=== PATIENT | male | born 1945 | race Caucasian/White ===

== ENCOUNTER 2016-10-16 01:31 | Emergency (ER) | payer MEDICARE, OTHER ==
[~2016-10-16] VITALS: Ht 182.9 cm; Wt 68.0 kg
[2016-10-16] MEDS ORDERED: PREDNISONE20 MG PO (01:48)
[2016-10-16] MEDS ORDERED: VENTOLIN HFA18 GM INH (01:48)
[2016-10-16] MEDS ORDERED: IPRAT-ALBUT 0.5-3 ML INH (02:16)
[2017-02-04] MEDS ORDERED: TESSALON PERLE100 MG PO (22:56)
== END 2016-10-16 02:24 | disposition home or self-care (01) ==
LOC: ED 01:31
DX: J44.1 Chronic obstructive pulmonary disease with (acute) exacerbation (principal); F17.200 Nicotine dependence, unspecified, uncomplicated
CPT/HCPCS: 71020; 94640; 99283; J7512

== ENCOUNTER 2016-12-03 21:57 | Emergency (ER) | payer MEDICARE, OTHER ==
[~2016-12-03] VITALS: Ht 182.9 cm; Wt 68.0 kg
[~2016-12-03 21:57] MED LIST: IPRAT-ALBUT 0.5-3 ML INH; PREDNISONE20 MG PO; VENTOLIN HFA18 GM INH
[2017-02-04] MEDS ORDERED: TESSALON PERLE100 MG PO (22:56)
== END 2016-12-03 22:32 | disposition home or self-care (01) ==
LOC: ED 21:57
DX: J44.9 Chronic obstructive pulmonary disease, unspecified (principal); F17.200 Nicotine dependence, unspecified, uncomplicated; Z79.899 Other long term (current) drug therapy
CPT/HCPCS: 94640; 99283

== ENCOUNTER → 2017-02-04 | Emergency (ER) | payer MEDICARE, OTHER ==
[~2017-02-04] VITALS: Ht 182.9 cm; Wt 68.0 kg
[~2017-02-04] MED LIST changes: +TESSALON PERLE100 MG PO
== END ==
LOC: ED 22:03
DX: J44.1 Chronic obstructive pulmonary disease with (acute) exacerbation (principal); F17.200 Nicotine dependence, unspecified, uncomplicated
CPT/HCPCS: 71010; 99284

== ENCOUNTER 2017-05-07 21:35 | Emergency (ER) | payer MEDICARE, OTHER ==
[~2017-05-07] VITALS: Ht 182.9 cm; Wt 68.0 kg
--- NOTE | 2017-05-08 05:01 | EKG ---
[facility] [address] [place], [place] [address] Signed Sinus bradycardia with sinus arrhythmia Possible Anterior infarct , age undetermined Abnormal ECG No previous ECGs available Confirmed by MICHELE LINARES MD ([id number]) on 05/08/2017 5:00:57 AM Electronically Signed By: MICHELE LINARES MD 05/08/17 0501 PATIENT NAME: RAFIQ HAYDEN Electrocardiogram DATE OF : 49 PHYSICIAN: MICHELE LINARES MD REPORT #: [id number] REPORT IS CONFIDENTIAL AND NOT TO BE RELEASED WITHOUT AUTHORIZATION
== END 2017-05-07 23:23 | disposition home or self-care (01) ==
LOC: ED 21:35
DX: R51 Headache (principal); R42 Dizziness and giddiness; F17.200 Nicotine dependence, unspecified, uncomplicated
CPT/HCPCS: 70450; 71045; 80053; 81001; 84484; 85025; 85610; 85730; 93005; 93010; 99284

== ENCOUNTER 2017-11-14 16:55 | Emergency (ER) | payer MEDICARE ==
[~2017-11-14] VITALS: Ht 182.9 cm; Wt 68.0 kg
[~2017-11-14 16:55] MED LIST changes: +DOXYCYCLINE HY100 MG PO; +LEVAQUIN750 MG PO; +LEVOTHYROXINE50 MCG PO; +ONDANSETRON ODT8 MG PO
== END 2017-11-14 19:16 | disposition home or self-care (01) ==
LOC: ED 16:55
DX: T67.5XXA Heat exhaustion, unspecified, initial encounter (principal); N39.0 Urinary tract infection, site not specified; E86.0 Dehydration; X30.XXXA Exposure to excessive natural heat, initial encounter; J44.9 Chronic obstructive pulmonary disease, unspecified; E03.9 Hypothyroidism, unspecified; F17.200 Nicotine dependence, unspecified, uncomplicated; Z79.899 Other long term (current) drug therapy; Z79.2 Long term (current) use of antibiotics
CPT/HCPCS: 94640; 99284

== ENCOUNTER 2018-06-20 16:50 | Emergency (ER) | payer MEDICARE, BC ==
[~2018-06-20] VITALS: Ht 182.9 cm; Wt 68.0 kg
--- OUTSIDE RECORDS SUMMARY | 2018-06-20 16:52 | XMS ---
PreManage Notification: RAFIQ HAYDEN [employer] Contractor Events No recent Security Events currently on file CRITERIA MET - Group Notification - [facility] - Has Care Guidelines - [facility] CARE PROVIDERS Hero Salas MD Family Medicine Current PHONE: Unknown Pina Noel Case or Fabrication Lead Current PHONE: [phone] Hero Salas MD Primary Care Current PHONE: Unknown [facility]wa has no Care Guidelines for this patient. Care History Medical/Surgical 12/05/2017 [facility] HISTORY:\T\nbsp; COPD/ HYPOTHYROID/ CURRENT SMOKER E.D. VISIT COUNT (12 MO.) 3 [facility] TOTAL 3 NOTE: Visits indicate total known visits. 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 - Heat exhaustion, unspecified, initial encounter - Weakness - Urinary tract infection, site not specified - Chronic obstructive pulmonary disease, unspecified - travel guide (current) use of antibiotics - Nicotine dependence, unspecified, uncomplicated 11/13/2017 11:14 [facility] TYPE: Emergency COMPLAINT: - WEAKNESS DIAGNOSES: - Acute bronchitis, unspecified - Nicotine dependence, unspecified, uncomplicated - Chronic obstructive pulmonary disease with acute lower respiratory infection - Urinary tract infection, site not specified - Weakness - Hypothyroidism, unspecified - Other [place] [facility] (current) drug therapy INPATIENT VISIT TRACKING (12 MO.) No inpatient visits to display in this time frame [email or web address]
[2018-06-20] MEDS ORDERED: LEVAQUIN500 MG PO (19:34)
[2018-06-20] MEDS ORDERED: PREDNISONE20 MG PO (19:40)
--- NOTE | 2018-06-20 21:16 | EKG ---
[facility] [address] [facility] [facility] [place] [address] Signed Normal sinus rhythm with sinus arrhythmia Low voltage QRS T wave abnormality, consider inferolateral ischemia Abnormal ECG When compared with ECG of 07-MAY-2017 21:50, Vent. rate has increased BY 32 BPM T wave inversion now evident in Inferior leads T wave inversion now evident in Anterolateral leads Confirmed by MICHELE LINARES MD ([id number]) on 06/20/2018 9:16:25 PM Electronically Signed By: MICHELE LINARES MD 06/20/18 2116 PATIENT NAME: RAFIQ HAYDEN Electrocardiogram DATE OF : 49 PHYSICIAN: MICHELE LINARES MD REPORT #: [id number] REPORT IS CONFIDENTIAL AND NOT TO BE RELEASED WITHOUT AUTHORIZATION
== END 2018-06-20 20:58 | disposition home or self-care (01) ==
LOC: ED 16:50
DX: J44.0 Chronic obstructive pulmonary disease with (acute) lower respiratory infection (principal); J18.9 Pneumonia, unspecified organism; E03.9 Hypothyroidism, unspecified; F17.200 Nicotine dependence, unspecified, uncomplicated
CPT/HCPCS: 71046; 80053; 83735; 84484; 85025; 87502; 93005; 93010; 96365; 96367; 96375; 99285-25; J0456; J0696; J2405; J2930

== ENCOUNTER 2019-01-31 15:24 | Emergency (ER) | payer MEDICARE, BC ==
[~2019-01-31] VITALS: Ht 182.9 cm; Wt 68.0 kg
[~2019-01-31 15:24] MED LIST changes: +LEVAQUIN500 MG PO
== END 2019-01-31 15:43 | disposition home or self-care (01) ==
LOC: ED 15:24
DX: M25.511 Pain in right shoulder (principal)

== ENCOUNTER 2019-06-19 00:50 | Emergency (ER) | payer BC, MEDICARE ==
[~2019-06-19] VITALS: Ht 182.9 cm; Wt 68.0 kg
[2019-06-19] MEDS ORDERED: LEVOTHYROXINE75 MCG PO (00:58)
[2019-06-19] MEDS ORDERED: IBUPROFEN IB200 MG PO (00:59)
== END 2019-06-19 02:02 | disposition home or self-care (01) ==
LOC: ED 00:50
DX: H10.9 Unspecified conjunctivitis (principal); J44.9 Chronic obstructive pulmonary disease, unspecified; E03.9 Hypothyroidism, unspecified; F17.200 Nicotine dependence, unspecified, uncomplicated; Z79.899 Other long term (current) drug therapy
CPT/HCPCS: 99283

== ENCOUNTER 2020-06-22 15:43 | Emergency (ER) | payer BC, MEDICARE ==
[~2020-06-22] VITALS: Ht 182.9 cm; Wt 63.5 kg
[~2020-06-22 15:43] MED LIST changes: +IBUPROFEN IB200 MG PO; +LEVOTHYROXINE75 MCG PO
[2020-06-22] MEDS ORDERED: AZITHROMYCIN250 MG PO (15:58)
--- NOTE | 2020-06-22 17:31 | EKG ---
[facility] [address] [facility] [place] [address] Signed Normal sinus rhythm with sinus arrhythmia Normal ECG When compared with ECG of 20-JUN-2018 17:16, T wave inversion no longer evident in Inferior leads T wave inversion no longer evident in Anterolateral leads Confirmed by MEKHI VIZCARRA DO ([id number]) on 06/22/2020 5:31:35 PM Electronically Signed By: MEKHI VIZCARRA DO 06/22/20 1731 PATIENT NAME: RAFIQ HAYDEN Electrocardiogram DATE OF : 49 PHYSICIAN: MEKHI VIZCARRA DO REPORT #: [id number] REPORT IS CONFIDENTIAL AND NOT TO BE RELEASED WITHOUT AUTHORIZATION
[2020-06-22] MEDS ORDERED: PREDNISONE20 MG PO (19:03)
== END 2020-06-22 19:13 | disposition home or self-care (01) ==
LOC: ED 15:43
DX: J44.1 Chronic obstructive pulmonary disease with (acute) exacerbation (principal); E03.9 Hypothyroidism, unspecified; Z79.899 Other long term (current) drug therapy
CPT/HCPCS: 71045; 80053; 83735; 84484; 85025; 93005; 93010; 94640; 96374; 99285-25; 99406; J2930

== ENCOUNTER 2021-04-01 14:43 | Emergency (ER) | payer BC, MEDICARE ==
[~2021-04-01] VITALS: Ht 182.9 cm; Wt 65.3 kg
[~2021-04-01 14:43] MED LIST changes: +AZITHROMYCIN250 MG PO
--- NOTE | 2021-04-02 17:45 | EKG ---
[facility] [address] [place], [place] [address] Signed Junctional rhythm Nonspecific ST and T wave abnormality Abnormal ECG Confirmed by MEKHI VIZCARRA DO ([id number]) on 04/02/2021 5:45:34 PM Electronically Signed By: MEKHI VIZCARRA DO 04/02/21 1745 PATIENT NAME: RAFIQ HAYDEN Electrocardiogram DATE OF : 49 PHYSICIAN: MEKHI VIZCARRA DO REPORT #: [id number] REPORT IS CONFIDENTIAL AND NOT TO BE RELEASED WITHOUT AUTHORIZATION
== END 2021-04-01 19:05 | disposition short-term general hospital (02) ==
LOC: ED 14:43
DX: I21.4 Non-ST elevation (NSTEMI) myocardial infarction (principal); Z20.822 Contact with and (suspected) exposure to COVID-19; J44.9 Chronic obstructive pulmonary disease, unspecified; E03.9 Hypothyroidism, unspecified; Z79.899 Other long term (current) drug therapy
CPT/HCPCS: 70450; 71045; 80048; 84484; 85025; 85379; 85730; 93005; 93010; 96374; 96375; 99285-25; C9803; J1644; J2270; U0003

== ENCOUNTER 2021-04-15 13:10 | Emergency (ER) | payer BC, MEDICARE ==
[~2021-04-15] VITALS: Ht 182.9 cm; Wt 65.3 kg
[2021-04-15] MEDS ORDERED: METOPROLOL TART25 MG PO (14:25)
[2021-04-15] MEDS ORDERED: ATORVASTATIN CA80 MG PO (14:25)
--- NOTE | 2021-04-17 16:29 | EKG ---
[facility] [address] [facility] [place] [address] Signed Accelerated Junctional rhythm Nonspecific T wave abnormality Abnormal ECG When compared with ECG of 01-APR-2021 14:51, Vent. rate has increased BY 27 BPM Nonspecific T wave abnormality now evident in Inferior leads Nonspecific T wave abnormality now evident in Anterior leads Confirmed by MEKHI VIZCARRA DO ([id number]) on 04/17/2021 4:29:44 PM Electronically Signed By: MEKHI VIZCARRA DO 04/17/21 1629 PATIENT NAME: RAFIQ HAYDEN Electrocardiogram DATE OF : 49 PHYSICIAN: MEKHI VIZCARRA DO REPORT #: [id number] REPORT IS CONFIDENTIAL AND NOT TO BE RELEASED WITHOUT AUTHORIZATION
== END 2021-04-15 17:21 | disposition home or self-care (01) ==
LOC: ED 13:10
DX: R07.2 Precordial pain (principal); J44.9 Chronic obstructive pulmonary disease, unspecified; E03.9 Hypothyroidism, unspecified; I25.2 Old myocardial infarction; Z79.890 Hormone replacement therapy; Z79.899 Other long term (current) drug therapy
CPT/HCPCS: 71045; 80048; 84484; 85025; 93005; 93010; 99285-25

== ENCOUNTER 2022-01-19 14:31 | Emergency (ER) | payer BC, MEDICARE ==
[~2022-01-19] VITALS: Ht 182.9 cm; Wt 64.0 kg
[~2022-01-19 14:31] MED LIST changes: +ATORVASTATIN CA80 MG PO; +METOPROLOL TART25 MG PO
[2022-01-19] MEDS ORDERED: LEVOFLOXACIN750 MG PO (18:54)
== END 2022-01-19 19:30 | disposition home or self-care (01) ==
LOC: ED 14:31
DX: N45.1 Epididymitis (principal); J44.9 Chronic obstructive pulmonary disease, unspecified; E03.9 Hypothyroidism, unspecified; I25.2 Old myocardial infarction; Z79.899 Other long term (current) drug therapy
CPT/HCPCS: 36415; 76870; 80053; 81001; 83605; 83690; 85025; 87040; 87088; 87186; 96374; 99284-25; J1956; J7030

== ENCOUNTER 2024-02-09 15:02 | Emergency (ER) | payer BC, MEDICARE ==
[~2024-02-09] VITALS: Ht 182.9 cm; Wt 66.6 kg
[~2024-02-09 15:02] MED LIST changes: +LEVOFLOXACIN750 MG PO
[2024-02-09 15:15] LABS: BASOPHILS 1.1 % (0-2); EOSINOPHILS 3.8 % (0-6); HEMATOCRIT 41.5 % (35.0-50.0); HEMOGLOBIN 14.1 g/dL (12.0-18.0); LYMPHOCYTES 43.6 % (24-44); MCH 28.9 (27-36); MCHC 34.1 g/dl (30-36); MCV 84.7 fl (81-99); MONOCYTES 6.8 % (0-12); NEUTROPHILS 44.7 % (39-80); PLATELET COUNT 225 K/uL (140-440)
[2024-02-09] MEDS ORDERED: LEVOTHYROXINE50 MCG PO (15:21)
[2024-02-09 15:26] LABS: PARTIAL THROMBOPLASTIN TIME 27.5 Sec (22.9-41.3)
[2024-02-09 15:27] LABS: INR 1.04 (0.80-1.30); PROTIME 12.9 Sec (11.2-14.2)
[2024-02-09 15:33] LABS: ALBUMIN 3.9 g/dL (3.4-5.0); ALBUMIN/GLOBULIN RATIO 1.18 (1.1-2.4); ALCOHOL, MEDICAL <3 ng/dL (<3); ALKALINE PHOSPHATASE 112 U/L (46-116); ALT (SGPT) 16 U/L (14-59); ANION GAP 11.7 (7-21); AST (SGOT) 17 U/L (15-37); BILIRUBIN, TOTAL 0.5 ng/dL (0.2-1.0); CALCIUM 9.2 mg/dL (8.5-10.1); CARBON DIOXIDE 30 mmol/L (21-32); CHLORIDE 104 mmol/L (98-107); CREATININE, SERUM 0.84 mg/dL (0.70-1.30); GLOMERULAR FILTRATION RATE,EST 90 mL/min (>60); POTASSIUM 3.7 mmol/L (3.5-5.1); PROTEIN, TOTAL 7.2 g/dL (6.4-8.2); UREA NITROGEN 10 mg/dL (7-18)
[2024-02-09] MEDS ORDERED: TENECTEPLASE 50 MG/10 ML VIAL IV ONE (16:00)
[2024-02-09 17:50] LABS: AMPHETAMINES, URINE NEGATIVE (NEGATIVE); BARBITURATES, URINE NEGATIVE (NEGATIVE); BENZODIAZEPINE, URINE NEGATIVE (NEGATIVE); BUPRENORPHINE, URINE NEGATIVE (NEGATIVE); CANNABINOID, URINE NEGATIVE (NEGATIVE); COCAINE, URINE NEGATIVE (NEGATIVE); ECSTASY, URINE NEGATIVE (NEGATIVE); FENTANYL, URINE NEGATIVE (NEGATIVE); METHADONE, URINE NEGATIVE (NEGATIVE); OPIATES, URINE NEGATIVE (NEGATIVE); OXYCODONE, URINE NEGATIVE (NEGATIVE); PHENCYCLIDINE, URINE NEGATIVE (NEGATIVE)
[2024-02-09 18:15] VITALS: BP 130/73
--- NOTE | 2024-02-09 22:00 | EKG ---
[facility] [address] [facility] [place] [address] Signed Wide QRS rhythm Right bundle branch block Abnormal ECG When compared with ECG of 22-JAN-2023 22:38, Right bundle branch block is now present Confirmed by Elza Farr MD () on 02/09/2024 10:00:31 PM Electronically Signed By: ELZA FARR MD 02/09/[id number] PATIENT NAME: JACKELYNRAFIQ Mobley Electrocardiogram DATE OF : 49 PHYSICIAN: ELZA FARR MD REPORT #: [id number] REPORT IS CONFIDENTIAL AND NOT TO BE RELEASED WITHOUT AUTHORIZATION
== END 2024-02-09 18:15 | disposition short-term general hospital (02) ==
LOC: ED 15:02
PROVIDERS: Emergency Medicine
DX: I63.9 Cerebral infarction, unspecified (principal); J44.9 Chronic obstructive pulmonary disease, unspecified; I25.2 Old myocardial infarction; Z95.1 Presence of aortocoronary bypass graft; Z79.899 Other long term (current) drug therapy; Z79.890 Hormone replacement therapy
CPT/HCPCS: 36415; 70450; 70496; 70498; 71045; 80053; 80307; 84484; 85025; 85610; 85730; 93005; 93010; 99285-25; G0480; J3101; Q9967

== ENCOUNTER 2024-05-14 22:51 | Emergency (ER) | payer BC, MEDICARE ==
[~2024-05-14] VITALS: Ht 182.9 cm; Wt 66.2 kg
[2024-05-14 23:06] LABS: PH, VENOUS 7.352 (7.31-7.41)
[2024-05-14 23:11] LABS: BASOPHILS 1.2 % (0-2); EOSINOPHILS 3.7 % (0-6); HEMATOCRIT 40.3 % (35.0-50.0); HEMOGLOBIN 13.4 g/dL (12.0-18.0); MCH 28.3 (27-36); MCHC 33.2 g/dl (30-36); MCV 85.3 fl (81-99); MONOCYTES 6.6 % (0-12); NEUTROPHILS 41.5 % (39-80); PLATELET COUNT 194 K/uL (140-440); RBC 4.72 M/ul (4.3-5.7); RDW 14.8 (10.5-15.0)
[2024-05-14] MEDS ORDERED: ALBUTEROL/IPRATROPIUM 3 ML NEB INH ONE (23:15)
[2024-05-14] MEDS ORDERED: methylPREDNISolone SOD SUCC 125 MG/2 ML VIAL IV ONE (23:15)
[2024-05-14 23:32] LABS: ALBUMIN/GLOBULIN RATIO 1.18 (1.1-2.4); BILIRUBIN, TOTAL 0.4 ng/dL (0.2-1.0); BUN/CREATININE RATIO 13.41 (6.0-28.6); CALCIUM 9.1 mg/dL (8.5-10.1); CREATININE, SERUM 0.82 mg/dL (0.70-1.30); PROTEIN, TOTAL 7.4 g/dL (6.4-8.2)
[2024-05-15] MEDS ORDERED: ALBUTEROL SULFATE 8 GM HOME.PACK INH ONE (01:00)
[2024-05-15] MEDS ORDERED: AZITHROMYCIN 250 MG HOME.PACK PO ONE (01:15)
[2024-05-15] MEDS ORDERED: methylPREDNISolone 4 MG HOME.PACK PO ONE (01:15)
[2024-05-15] MEDS ORDERED: INHALER, ASSIST DEVICES 1 EACH SPACER MISC ONE (01:15)
[2024-05-15 01:35] VITALS: BP 117/55
--- NOTE | 2024-05-15 13:34 | EKG ---
[facility] [address] [facility] [place] [address] Signed Sinus bradycardia with sinus arrhythmia Left axis deviation Right bundle branch block Abnormal ECG When compared with ECG of 09-FEB-2024 15:29, Sinus rhythm has replaced Wide QRS rhythm Confirmed by Allen Hickey MD ([id number]) on 05/15/2024 1:34:42 PM Electronically Signed By: ALLEN HICKEY MD 05/15/24 1334 PATIENT NAME: RAFIQ HAYDEN Electrocardiogram DATE OF : 49 PHYSICIAN: ALLEN HICKEY MD REPORT #: [id number] REPORT IS CONFIDENTIAL AND NOT TO BE RELEASED WITHOUT AUTHORIZATION
== END 2024-05-15 01:36 | disposition home or self-care (01) ==
LOC: ED 22:51
PROVIDERS: Family Medicine
DX: J44.1 Chronic obstructive pulmonary disease with (acute) exacerbation (principal); E03.9 Hypothyroidism, unspecified; I25.2 Old myocardial infarction; F17.210 Nicotine dependence, cigarettes, uncomplicated; Z79.890 Hormone replacement therapy; Z79.899 Other long term (current) drug therapy
CPT/HCPCS: 36415; 70450; 71045; 80053; 82803; 83880; 84484; 85025; 85379; 93005; 93010; 94640; 94664; 96374; 99285-25; J2919